=== PATIENT | male | born 1985 | race Caucasian/White ===

== ENCOUNTER 2021-07-29 08:00 | Outpatient (CLI) | payer OTHER ==
[~2021-07-29 08:00] MED LIST: CATAFLAM50 MG PO; ORPH100T PO
== END 2021-07-29 08:30 | disposition home or self-care (01) ==
LOC: PPH VACUNA 08:00
PROVIDERS: ATTEND Emergency Medicine Pediatric Emergency Medicine
DX: Z23 Encounter for immunization (principal)